=== PATIENT | female | born 1990 | race Caucasian/White ===

== ENCOUNTER 2017-11-24 20:32 | Emergency (ER) | payer OTHER ==
[~2017-11-24] VITALS: Ht 160 cm; Wt 93.4 kg
[2017-11-24] MEDS ORDERED: PRENATAL + DHA1 EAC1 (21:02)
== END 2017-11-24 22:59 | disposition home or self-care (01) ==
LOC: ER 20:32
DX: O98.511 Other viral diseases complicating pregnancy, first trimester (principal); B34.8 Other viral infections of unspecified site; Z34.81 Encounter for supervision of other normal pregnancy, first trimester; Z3A.09 9 weeks gestation of pregnancy